=== PATIENT | female | born 1990 | race Caucasian/White ===

== ENCOUNTER → 2016-09-28 | Outpatient (CLI) | payer BC ==
[~2016-09-28] MED LIST: BCPILLS PO
[2016-09-28 16:41] LABS: BASO % 0.2 %; BASO ABS # 0.02 K/uL (0-0.2); COMPLETE YES; EOS % 0.6 %; HEMATOCRIT 38.5 % (37-47); IG% 0.2 %; LYMPH % 19.5 %; LYMPH ABS # 2.11 K/uL (1.2-3.4); MEAN CELL VOLUME 85.2 fL (80-100); MEAN CORPUSCULAR HEMOGLOBIN 29.4 pg (25-34); MEAN CORPUSCULAR HGB CONC 34.5 g/dl (32-36); MEAN PLATELET VOLUME 10.2 fL (7.4-10.4); MONO % 5.7 %; NEUT % 73.8 %; PLATELET COUNT 231 K/uL (130-400); RED BLOOD COUNT 4.52 M/uL (4.2-5.4)
== END | disposition home or self-care (01) ==
LOC: C.LAB1850 15:05
PROVIDERS: ATTEND Obstetrics & Gynecology
DX: Z34.01 Encounter for supervision of normal first pregnancy, first trimester (principal)

== ENCOUNTER → 2016-09-28 | Outpatient (CLI) | payer BC ==
[2016-09-28 18:28] LABS: URINE APPEARANCE CLEAR (CLEAR); URINE BILIRUBIN NEG (NEG); URINE COLOR YELLOW; URINE NITRITE NEG (NEG); URINE PH 5.5 (4.5-7.5); URINE SPECIFIC GRAVITY 1.015 (1.000-1.030); UROBILINOGEN NEG (NEG)
[2016-09-28 18:29] LABS: MANUAL MICROSCOPIC REQUIRED? NO; REVIEW REQ? NO
[2016-09-30 14:19] LABS: CHLAMYDIA TRACH RNA*** NOT DETECTED (NOT DETECTED); GC (NEIS GONORRHOEAE)RNA** NOT DETECTED (NOT DETECTED)
== END | disposition home or self-care (01) ==
LOC: C.LABSPEC 17:50
PROVIDERS: ATTEND Obstetrics & Gynecology
DX: Z34.01 Encounter for supervision of normal first pregnancy, first trimester (principal)

== ENCOUNTER → 2016-11-12 | Outpatient (CLI) | payer BC ==
[2016-11-12 18:33] LABS: GTGD 50 Grams
== END | disposition home or self-care (01) ==
LOC: C.LAB1850 16:45
PROVIDERS: ATTEND Obstetrics & Gynecology
DX: Z34.02 Encounter for supervision of normal first pregnancy, second trimester (principal)

== ENCOUNTER → 2016-11-21 | Outpatient (CLI) | payer BC | END | disposition home or self-care (01) | LOC: C.LABBC 07:53 | PROVIDERS: ATTEND Obstetrics & Gynecology | DX: O28.1 Abnormal biochemical finding on antenatal screening of mother (principal); Z3A.00 Weeks of gestation of pregnancy not specified ==

== ENCOUNTER → 2017-01-23 | Outpatient (CLI) | payer BC | END | disposition home or self-care (01) | LOC: C.LAB 07:21 | PROVIDERS: ATTEND Obstetrics & Gynecology | DX: O28.1 Abnormal biochemical finding on antenatal screening of mother (principal); Z3A.00 Weeks of gestation of pregnancy not specified ==

== ENCOUNTER → 2017-02-03 | Outpatient (CLI) | payer BC ==
[2017-02-03 19:17] LABS: URINE APPEARANCE CLEAR (CLEAR); URINE BILIRUBIN NEG (NEG); URINE COLOR YELLOW; URINE EPITHELIAL CELL AUTO >30 /lpf (0-5); URINE NITRITE NEG (NEG); URINE SPECIFIC GRAVITY 1.029 (1.000-1.030); UROBILINOGEN NEG (NEG)
[2017-02-03 19:19] LABS: MANUAL MICROSCOPIC REQUIRED? NO; REVIEW REQ? NO
== END | disposition home or self-care (01) ==
LOC: C.LABSPEC 17:46
PROVIDERS: ATTEND Obstetrics & Gynecology
DX: O28.1 Abnormal biochemical finding on antenatal screening of mother (principal)

== ENCOUNTER → 2017-04-01 | Outpatient (CLI) | payer BC | END | disposition home or self-care (01) | LOC: C.LABSPEC 17:55 | PROVIDERS: ATTEND Obstetrics & Gynecology | DX: Z34.03 Encounter for supervision of normal first pregnancy, third trimester (principal) ==

== ENCOUNTER 2017-04-18 20:02 | Inpatient (IN) | payer BC ==
[~2017-04-18] VITALS: Ht 165.1 cm; Wt 99.5 kg
[2017-04-18] MEDS ORDERED: LACTATED RINGER'S 1000ML 1,000 ML IV PRN (20:45)
[2017-04-18] MEDS ORDERED: LACTATED RINGER'S 1000ML 1,000 ML IV SCH (20:45)
[2017-04-18] MEDS ORDERED: PRENTAB26 PO (21:05)
[2017-04-18] MEDS ORDERED: EpHEDrine SULFATE INJ 50 MG/ML AMP ONE (21:29)
[2017-04-18] MEDS ORDERED: BUPIVACAINE 0.25% 30 ML VIAL ONE (21:29)
[2017-04-18] MEDS ORDERED: FENTANYL CITRATE INJ 50 MCG/1 ML 2 ML VIAL ONE (21:29)
[2017-04-18] MEDS ORDERED: FENTANYL 2MCG/ML ROPIV 1.25MG/ML 100ML BAG EPI ONE (21:30)
[2017-04-18 21:32] LABS: HEMATOCRIT 35.6 % (37-47); HEMOGLOBIN 12.5 g/dL (12.0-16.0); MEAN CELL VOLUME 83.4 fL (80-100); MEAN CORPUSCULAR HEMOGLOBIN 29.3 pg (25-34); MEAN PLATELET VOLUME 11.2 fL (7.4-10.4); PLATELET COUNT 182 K/uL (130-400); RED CELL DISTRIBUTION WIDTH CV 13.4 % (11.5-14.5); RED CELL DISTRIBUTION WIDTH SD 40.4 fL (36.4-46.3); WHITE BLOOD COUNT 18.74 K/uL (4.8-10.8)
[2017-04-18 21:44] LABS: MEAN CORPUSCULAR HGB CONC 35.1 g/dl (32-36)
[2017-04-18] MEDS ORDERED: OXYTOCIN 30 UNITS/500ML NSS IV ONE (22:31)
[2017-04-18] MEDS ORDERED: LACTATED RINGER'S 1000ML 500 ML IV PRN (22:35)
[2017-04-18] MEDS ORDERED: NALOXONE HCL INJ 1 MG in SODIUM CHLORIDE 0.9% 1000ML 1,000 ML IV PRN (22:35)
[2017-04-18] MEDS ORDERED: ONDANSETRON INJ 2 MG/ML 2 ML VIAL IV PRN (22:45)
[2017-04-18] MEDS ORDERED: EpHEDrine SULFATE INJ 50 MG/ML AMP IV PRN (22:45)
[2017-04-18] MEDS ORDERED: NALBUPHINE HCL INJ 10 MG/ML AMP IV PRN (22:45)
[2017-04-18] MEDS ORDERED: NALOXONE HCL INJ 0.4 MG/1 ML VIAL/CARP IV PRN (22:45)
[2017-04-18] MEDS ORDERED: FENTANYL 2MCG/ML ROPIV 1.25MG/ML 100ML BAG EPI PRN (22:45)
[2017-04-18] MEDS ORDERED: DiphenhydrAMINE HCL 50 MG/ML VIAL IV PRN (22:45)
[2017-04-19 00:57] VITALS: Ht 165.1 cm; Wt 99.5 kg
[2017-04-19] MEDS ORDERED: LACTATED RINGER'S 1000ML 1,000 ML IV SCH (05:08)
[2017-04-19] MEDS ORDERED: OXYTOCIN 30 UNITS/500ML NSS IV PRN (05:15)
[2017-04-19] MEDS ORDERED: BENZOCAINE 20% AER SPR 82.5 GM CAN EXT PRN (05:15)
[2017-04-19] MEDS ORDERED: HYDROCORTISONE ACETATE 25 MG SUPP PR PRN (05:15)
[2017-04-19] MEDS ORDERED: OXYCODONE/ACETAMINOPHEN 5-325 TAB PO PRN (05:15)
[2017-04-19] MEDS ORDERED: LANOLIN OINT EXT PRN (05:15)
[2017-04-19] MEDS ORDERED: DIPHTHERIA/TETANUS/PERTUSSIS 0.5 ML SYR/VIAL IM. ONE (05:15)
[2017-04-19] MEDS ORDERED: SUPERCREAM 0.870 % 15GM JAR EXT PRN (05:15)
[2017-04-19] MEDS ORDERED: ACETAMINOPHEN 325 MG TAB PO PRN (05:15)
--- NOTE | 2017-04-19 07:02 | DELIVERY SUMMARY ---
DATE OF OPERATION: 04/19/2017 VAGINAL DELIVERY NOTE COURSE CARE: Nara reached complete dilation and I was called to the room for delivery. I prepped and draped and washed the patient's perineum. She then pushed to deliver the head of her in an occiput anterior position with the left arm as a compound presentation and the left arm was also anterior. Once the shoulder was delivered, the remainder of the followed with no difficulty. The was placed on the maternal abdomen and the cord was doubly clamped and cut by the father of the baby. The placenta delivered spontaneously and was intact with a 3-vessel cord. There were no lacerations of the cervix, vagina, or perineum requiring repair. At the present time, both mother and are in stable condition having tolerated delivery well. I attest to the content of the Intraoperative Record and any orders documented therein. Any exceptions are noted below. MTDD
--- NOTE | 2017-04-19 07:13 | Anesthesia Procedure Note ---
Anesthesia Epidural Removal Nt Date & Time Apr 19, 2017 at 07:13 Notes Mental Status: alert / awake / arousable, participated in evaluation Nausea / Vomiting: adequately controlled Pain: adequately controlled Airway Patency, RR, SpO2: stable & adequate BP & HR: stable & adequate Hydration State: stable & adequate Neuraxial Anesthesia: was administered Anesthetic Complications: no major complications apparent, pt satisfied with anesthetic care Epidural: removed without complications, with tip intact
[2017-04-19 09:00] VITALS: BP 123/80; PULSE 80; TEMP 37.2; O2SAT 98
[2017-04-19] MEDS: DOCUSATE SODIUM 100 MG CAP PO SCH ×2 (09:13→20:12)
[2017-04-19] MEDS: PRENATAL VITAMIN TAB PO SCH (09:13)
[2017-04-19 12:36] VITALS: BP 138/84; PULSE 83; TEMP 36.9; O2SAT 98
[2017-04-19] MEDS: IBUPROFEN 600 MG TAB PO PRN ×2 (14:50→20:13)
[2017-04-19 16:30] VITALS: BP 125/77; PULSE 86; TEMP 36.9
[2017-04-19 20:10] VITALS: BP 118/78; PULSE 90; TEMP 36.6
[2017-04-19 23:50] VITALS: BP 110/70; PULSE 73; TEMP 36.5
[2017-04-20 03:05] VITALS: BP 123/78; PULSE 85; TEMP 36.6
[2017-04-20 06:37] LABS: HEMATOCRIT 33.7 % (37-47); HEMOGLOBIN 11.7 g/dL (12.0-16.0)
[2017-04-20] MEDS: PRENATAL VITAMIN TAB PO SCH (07:22)
[2017-04-20] MEDS: DOCUSATE SODIUM 100 MG CAP PO SCH (07:22)
[2017-04-20] MEDS: IBUPROFEN 600 MG TAB PO PRN (07:23)
[2017-04-20 07:41] VITALS: BP 128/82; PULSE 80; TEMP 36.7; O2SAT 98
--- NOTE | 2017-04-20 07:57 | Progress Note ---
Subjective Apr 20, 2017. Subjective conversation w/ patient, physical exam Ambulation: ambulating normally Voiding: no voiding problems Passing Gas: Yes Diet Tolerance: Regular Diet Lochia: Moderate Feeding Type: Breast Feeding Review of Systems Constitutional: No fever, No chills, No sweats, No weight loss, No weakness, No fatigue, No problem reported Breast: No see HPI, No breast lump, No change in shape, No nipple discharge, No breast pain, No problem reported Abdomen: No pain, No nausea, No vomiting, No diarrhea, No constipation, No GI bleeding, No problem reported Female : No see HPI, No dysuria, No urinary frequency, No hematuria, No incontinence, No abnormal vaginal bleeding, No vaginal discharge, No problem reported Objective Vital Signs Date Time Temp Pulse Resp B/P (MAP) Pulse Ox O2 Delivery O2 Flow Rate FiO2 04/20/17 07:51 Room Air 04/20/17 07:41 36.7 80 14 128/82 (97) 98 Room Air 04/20/17 03:05 36.6 85 20 123/78 (93) Room Air 04/19/17 23:50 36.5 73 18 110/70 (83) Room Air 04/19/17 23:50 Room Air 04/19/17 20:10 36.6 90 20 118/78 (91) Room Air 04/19/17 16:30 36.9 86 18 125/77 (93) Room Air 04/19/17 16:30 Room Air 04/19/17 12:36 36.9 83 14 138/84 (102) 98 Room Air 04/19/17 09:00 37.2 80 18 123/80 (94) 98 Room Air Physical Exam General Appearance: WELL-APPEARING, NO APPARENT DISTRESS Abdomen: non tender, soft Fundus: Firm, Non-Tender, Relation to Umbilicus (1 below U) Extremities: no calf tenderness Laboratory Results Last 24 Hours Test 04/20/17 06:11 Hemoglobin 11.7 g/dL Hematocrit 33.7 % Assessment and Plan Day#: 1 Continue Routine Care: stable course patient wishes to be discharged follow up in 6 weeks.
--- NOTE | 2017-04-20 07:58 | Discharge Instructions ---
Discharge Instructions Date of Service Apr 20, 2017. Admission Reason for Admission: Check Labor Discharge Discharge Diagnosis / Problem: nomral delivery Discharge Goals Goal(s): Routine recovery after delivery Medications Continue Dispensed Medications: supercream, dermaplast, tucks, lansinoh Activity Recommendations Activity Limitations: per Instructions/Follow-up section . Instructions / Follow-Up Instructions / Follow-Up ACTIVITY RECOMMENDATIONS: * Gradual return to full activity over the next 2-3 weeks. * No lifting - nothing heavier than baby over the next 2-3 weeks. * Do not engage in vigorous exercise, sexual activity or sports until cleared by your physician. * Do not drive or operate any motorized equipment until cleared by your physician. * You may shower/bathe daily. MEDICATIONS: For discomfort or pain, you may use Acetaminophen (Tylenol), Ibuprofen (Advil), or Naproxen (Aleve) following the package directions. For constipation you may use Colace following the package directions. BREAST CARE: If you are not breast feeding: * Wear a supportive bra 24 hours a day for one to two weeks. * Avoid stimulating your breasts and nipples as much as possible during the first few weeks after delivery. * When taking a shower, have the warm water hit your back, not breasts. * When your breasts feel full, apply ice packs. Usually three to four times a day helps ease the discomfort. * Take a mild pain medication (Tylenol / Motrin) when you are uncomfortable. If breast feeding: * Use breast milk to lubricate nipples. Lansinoh cream may be used for sore nipples. You do not need to remove cream prior to breast feeding. If using a different brand of cream, check the label for directions regarding removal of cream prior to nursing. * Wear a supportive bra. * If having problems with breasts or breast feeding, call a middleware consultant or your health care provider. EPISIOTOMY CARE: After delivery, if you have an episiotomy (stitches), the following steps will ease discomfort and aid healing. * For the first 24 hours after delivery, place ice packs next to your episiotomy to help reduce swelling. * After the first 24 hour-period, sitz baths, either portable or in the tub, are suggested. A shower with a shower arm sprayed over the episiotomy may be comforting. * Ana care should be done after each voiding and bowel movement. Squirt warm water from a plastic bottle over the perineum (region of the body between the anus and urinary opening) and pat dry. * Use Dermoplast to ease discomfort. Shake container. Clarinda directly over the episiotomy. Place a Tucks on a clean sanitary pad next to your episiotomy. SPECIAL CARE INSTRUCTIONS: When you are discharged from the hospital, it is important for you to follow the instructions listed below: * During the first week at home, you should be able to care for yourself and your baby. In addition, the usual light household activities are encouraged. * Limit your activities to the way you feel. Do not try to clean the house or move furniture. Be sensible. * If you actively engage in sports and have done so up until the time of your delivery, you may resume these activities as soon as you feel able. This may take up to one month or even longer. Use good judgment. * Continue to take your vitamins for at least six weeks after the of your baby. * Your diet need not be limited unless you were on a special diet before your delivery. Breast-feeding mothers need around 2500 calories per day and at least 64-80 ounces of fluid per day (8 to 10 glasses). * You should eat foods from the four major food groups. Crash diets or fad diets are to be avoided. Eating lean meats, fresh fruits and vegetables, low-fat dairy products, high fiber foods and a regular exercise program, will help you get back to your pre- weight without putting your health at risk. * Constipation is sometimes a problem after delivery. Take a mild laxative as needed. If breast feeding, Milk of Magnesia is acceptable to use. You may use a suppository or Fleets enema if no episiotomy. * A daily shower or tub bath is suggested. Be sure to thoroughly and gently dry the perineum. * A bloody vaginal discharge will usually continue until around four weeks post . A small amount of bleeding may continue for as long as six weeks. Vaginal discharge changes from the bright red bleeding after delivery to pink then brownish and finally yellowish-pink before becoming white and disappearing. * Bleeding may increase with activity. Your first period may come in 4-8 weeks. If you are breast feeding, your period may be delayed even longer. * [place] (sex) can begin whenever both you and your partner feel comfortable and do not have any form of genital infection. It is recommended that you wait at least six weeks for internal and external healing to occur. If you have questions, please talk to your health care practitioner. A condom should be used to prevent infection and . * Foreplay, gentle intercourse and lubrication is very important the first several times to prevent pain. A water-based lubricant such as K-Y jelly or Astroglide may be used. * If you have RH negative blood and your baby is RH positive, you will receive RHOGAM by injection prior to discharge. The nurse will give you a card to keep with you that has the date and place that you received RHOGAM after delivery. * During your care, you had a Rubella screen done to check for the presence of rubella antibodies in your blood. If your test was negative, you will receive a Rubella vaccine prior to discharge. This vaccine may cause a fever, soreness at the injection site and flu-like symptoms. If these symptoms persist, notify your health care practitioner. is not advised for one month after a Rubella vaccine. * Verbalizes understanding of car seat law as reviewed with patient nursing. * Car Seat hand-out given and reviewed with patient by nursing. * Shaken baby information reviewed with patient by nursing. Call you doctor if: * Heavy bleeding (saturating several pads an hour) or passing clots the size of your fist. * A fever >101 degrees F (38.3 degrees C) on two occasions four hours apart and /or chills. * Unusual pain in the pelvic or vaginal areas. * "Baby Blues" lasting longer than two weeks. If you have any questions or concerns, call your health care practitioner at . FOLLOW UP VISIT: * Please call the office at to schedule a 6 week examination. It is important you keep this appointment. It is important for you to make arrangements for either yearly or twice yearly check-ups thereafter. Current Hospital Diet Patient's current hospital diet: Regular OB Diet Discharge Diet Recommended Diet: Regular OB Diet Pending Studies Studies pending at discharge: no Medical Emergencies . Who to Call and When: Medical Emergencies: If at any time you feel your situation is an emergency, please call [phone] immediately. . Non-Emergent Contact Non-Emergency issues call your: [employer] Shift Lead . . "Provider Documentation" section prepared by Olga Dias. . VTE Core Measure Inpt VTE Proph given/why not?: Treatment not indicated
== END 2017-04-20 14:30 | disposition home or self-care (01) | DRG 775 ==
LOC: C.LD 20:02 → C.OPB 20:02 → C.LD 20:46 → C.OBG 04-19 08:36
PROVIDERS: ADMIT Obstetrics & Gynecology; ATTEND Obstetrics & Gynecology
PROC: 10E0XZZ Delivery of Products of Conception, External Approach (ICD-10-PCS; principal; 2017-04-19)
DX: O32.6XX0 Maternal care for compound presentation, not applicable or unspecified (principal); Z3A.39 39 weeks gestation of pregnancy; Z37.0 Single live birth

== ENCOUNTER → 2017-06-01 | Outpatient (CLI) | payer BC ==
[~2017-06-01] MED LIST changes: -BCPILLS PO; +PRENTAB26 PO
== END | disposition home or self-care (01) ==
LOC: C.PAPS 16:28
PROVIDERS: ATTEND Obstetrics & Gynecology
DX: Z39.2 Encounter for routine postpartum follow-up (principal)

== ENCOUNTER 2019-06-16 22:59 | Inpatient (IN) ==
[2019-06-16] MEDS ORDERED: OXYTOCIN 30 UNITS/500 ML BAG IV PRN ×2 (23:13→23:53)
--- NOTE | 2019-06-16 23:28 | History & Physical Report ---
Date of Service June 16, 2019 Assessment & Plan (1) Normal labor: IUP at term with SPROM in early labor will want epidural analgesia pitocin if needed if no regular ctns in 2 hours anticipate vaginal History of Present Illness Primary Care Provider: NO PCP Patient is a 29 yo white female EDC06/18/19 who presents at 39+ weeks with SPROM for clear fluid at 2130. only cramping so far- no regular ctns yet. GBS-negative blood type A-positive. 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: No Beliefs That Will Affect Care: None marital status: marital status details: Kranthi Ross (32) [phone] Current Living Situation: Family Current Living Situation Comment: Lives with , 2 year old daughter, and a cat current occupational status: employed 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 @ [employer] Smoking Status: Never smoker Hx Alcohol Use: No Hx Substance Use: No Review of Systems All systems reviewed & are unremarkable except as noted in HPI & below Physical Exam Constitutional: WD/WN, vitals as above Respiratory: normal respiratory effort, lungs clear to auscultation Cardiovascular: RRR, no murmur, no edema Gastrointestinal (Abdomen): normal bowel sounds, soft, nontender, no he patosplenomegaly Psychiatric: A+Ox3, euthymic affect Genitourinary: OB Exam Abdomen: + vertex, + estimated weight (8-9 pounds) and + irregular contractions Manual OB Exam: + cervical dilation 3 cm, + cervical effacement 80%, + station -2 and + amniotic fluid clear OB Exam Monitor Tracing: + external FHT monitor used, + external uterine monitor used, + category I and + normal FHT variability grossly ruptured for clear fluid Results & Data Vital Signs (Past 12 Hours) Vital Signs Pulse BP 06/16/19 23:15 91 H 129/78 06/16/19 23:09 99 H 133/83 Coding Level of Care Code None Diagnoses Normal labor O80; Z37.9
[2019-06-16 23:33] LABS: Hematocrit (blood only) 35.3 % (37-47); Hemoglobin 11.9 g/dL (12.0-16.0); Mean Corpuscular Hemoglobin 29.5 pg (25-34); Mean Corpuscular Volume 87.4 fL (80-100); Mean Platelet Volume 11.2 fL (7.4-10.4); Platelet Count 159 K/uL (130-400); RDW Coefficient of Variation 13.4 % (11.5-14.5); RDW Standard Deviation 42.5 fL (36.4-46.3); Red Blood Count 4.04 M/uL (4.2-5.4)
[2019-06-16 23:35] LABS: Mean Corpuscular Hgb Conc 33.7 g/dL (32-36)
[2019-06-17] MEDS: LACTATED RINGER'S 1,000 ML IV PRN ×2 (00:40→01:36)
[2019-06-17] MEDS ORDERED: ePHEDrine sulfate 50 MG/ML AMP ONE (00:46)
[2019-06-17] MEDS ORDERED: BUPIVACAINE 0.25% 30 ML VIAL ONE (00:47)
[2019-06-17] MEDS ORDERED: fentaNYL citrate 100 MCG/2 ML VIAL ONE (00:48)
[2019-06-17] MEDS ORDERED: fentaNYL 2MCG/ML ROPIV 1.25MG/ML 100 ML BAG EPI ONE (00:48)
--- NOTE | 2019-06-17 01:44 | Anesthesiology Consultation ---
Date of Service June 17, 2019 Assessment & Plan Chart Review Chart Review: Acceptable Risk for Labor Epidural Consults Requested none Proposed Anesthesia Anesthesia Type: Labor Epidural Risk / Benefits Reviewed With: PT / POA / Parent / Guardian, Accepts Plan and Informed Consent Obtained History Height/Weight Height: 5 ft 5 in Weight: 98.883 kg Allergies Allergy/AdvReac Type Severity Reaction Status Date / Time No Known Allergies Allergy Verified 06/14/19 12:00 Medications Home Medications Medication Instructions Recorded Confirmed Last Taken lactobacillus combination no.8 3,000 mmu cells PO DAILY 06/17/19 06/17/19 06/16/19 07:00 vit-iron fum-folic ac 1 tab PO DAILY 06/17/19 06/17/19 06/16/19 07:00 [ Vitamin] Active Medications Generic Name Dose Route Start Last Admin Trade Name Freq PRN Reason Stop Dose Admin Lactated Ringer's 1,000 mls @ 125 mls/hr 06/16/19 23:13 06/17/19 01:36 Lr IV 06/18/19 23:12 125 mls/hr .Q8H PRN Administration L&D Protocol Protocol Oxytocin 30 units in 500 mls @ 1 mls/hr 06/16/19 23:53 06/17/19 01:12 Pitocin IV 06/18/19 23:52 0.06 units/hr .Q24H PRN 1 mls/hr Labor Induction/Augmentation Administration Protocol 0.06 UNITS/HR NPO Date Last Intake of Fluids: 06/17/19 Time Last Intake of Fluids: 00:00 Date Last Intake of Solids: 06/16/19 Time Last Intake of Solids: 19:00 Past Medical History Medical History Varicella Exercise / Class Metabolic Activity II 4-5 Yardwork/Stairs/Walk up hill Past Surgical History Surgical History S/P wisdom tooth extraction Past Anesthesia History No Hx of Anesthesia Complications History of PONV No Hx of PONV and No Hx of Motion Sickness Social History Smoking Status: Never smoker Do You Dip or Chew Tobacco: No Hx Alcohol Use: No Hx Substance Use: No substance use type: does not use Physical Exam Vital Signs Last Vital Signs Temp 36.6 C 06/17/19 01:28 Pulse 92 H 06/17/19 01:39 Resp 20 06/17/19 01:28 BP 187/95 H 06/17/19 01:36 Pulse Ox 100 06/17/19 01:39 ENMT Mouth: no TMJ abnormality Thyromental Distance: > or= 3.5 Finger Breadths Mallampati Class: II Neck normal visual inspection and trachea midline; neck extension not limited Respiratory normal respiratory effort Auscultation: lungs clear to auscultation bilaterally Cardiovascular Rate/Rhythm: regular rate and regular rhythm Heart Sounds: no murmur Musculoskeletal Spine: normal cervical ROM Extremities: full ROM of extremities Neurologic moves all extremities +scoliosis Psychiatric Orientation: alert and oriented x 3 Testing Laboratory Results 06/16/19 23:23
[2019-06-17] MEDS ORDERED: METOCLOPRAMIDE HCL 20 MG in SODIUM CHLORIDE 0.9% 50 ML IV PRN (02:34)
[2019-06-17] MEDS ORDERED: NALOXONE HCL 0.4 MG/1 ML VIAL/CARP IV PRN (02:34)
[2019-06-17] MEDS ORDERED: NALBUPHINE HCL INJ 10 MG/ML AMP IV PRN (02:34)
[2019-06-17] MEDS ORDERED: NALOXONE HCL 1 MG in SODIUM CHLORIDE 0.9% 1000ML 1,000 ML IV PRN (02:34)
[2019-06-17] MEDS ORDERED: PROMETHAZINE HCL 25 MG in SODIUM CHLORIDE 0.9% 50 ML IV PRN (02:34)
[2019-06-17] MEDS ORDERED: ePHEDrine sulfate 50 MG/ML AMP IV PRN (02:34)
[2019-06-17] MEDS ORDERED: ONDANSETRON INJ 2 MG/ML 2 ML VIAL IV PRN (02:34)
[2019-06-17] MEDS ORDERED: DiphenhydrAMINE HCL 50 MG/ML VIAL IV PRN (02:34)
[2019-06-17] MEDS ORDERED: fentaNYL 2MCG/ML ROPIV 1.25MG/ML 100 ML BAG EPI PRN (02:34)
[2019-06-17] MEDS ORDERED: OXYTOCIN 30 UNITS/500 ML BAG IV PRN (02:37)
[2019-06-17] MEDS ORDERED: SUPERCREAM 0.870% 15 GM JAR EXT PRN (02:37)
[2019-06-17] MEDS ORDERED: HYDROCORTISONE ACETATE 25 MG SUPP PR PRN (02:37)
[2019-06-17] MEDS ORDERED: bisacodyL 10 MG SUPP PR PRN (02:37)
[2019-06-17] MEDS ORDERED: BENZOCAINE 20% AER SPR 82.5 GM CAN EXT PRN (02:37)
[2019-06-17] MEDS ORDERED: IBUPROFEN 600 MG TAB PO PRN (02:37)
[2019-06-17] MEDS ORDERED: ACETAMINOPHEN 325 MG TAB PO PRN (02:37)
[2019-06-17] MEDS ORDERED: OXYCODONE/ACETAMINOPHEN 5mg/325mg TAB PO PRN (02:37)
[2019-06-17] MEDS ORDERED: DIPHTHERIA/TETANUS/PERTUSSIS 0.5 ML SYR/VIAL IM ONE (02:37)
--- NOTE | 2019-06-17 02:41 | Anesthesia Procedure Note ---
Date of Service June 17, 2019 Anesthesia Post Epidural Note Vital Signs Vital Signs: Temp Pulse Resp BP Pulse Ox 36.6 C 100 H 20 123/74 75 L 06/17/19 01:28 06/17/19 02:37 06/17/19 01:28 06/17/19 02:37 06/17/19 02:19 Notes Mental Status: alert / awake / arousable and participated in evaluation Nausea / Vomiting: adequately controlled Pain: adequately controlled Airway Patency, RR, SpO2: stable & adequate BP & HR: stable & adequate Hydration State: stable & adequate Neuraxial Anesthesia: was administered and sensory block is resolving Anesthetic Complications: no major complications apparent and Pt Satisfied with anesthetic care Epidural: Removed without complications and With tip intact
--- NOTE | 2019-06-17 04:28 | Delivery Summary ---
DATE OF OPERATION: 06/17/2019 The patient is a 29-year-old 2, para 1-0-0-1 white female, EDC of 06/18/2019 who presented with ruptured membranes. She then began to contract, but needed Pitocin augmentation. She went rapidly to full dilation with effective epidural analgesia. She pushed once to 1 contraction for delivery of a viable male . Rest of the infant delivered easily and was placed on the mother's abdomen for further attention and drying. There was spontaneous crying and the was moving all 4 limbs. After approximately a minute, the cord was clamped and cut. After cord blood was obtained, the placenta was expressed intact with a 3-vessel cord. There were very superficial bilateral labial abrasions, which were not bleeding and therefore not repaired. Estimated blood loss was 150 mL. Mother and infant were doing well after delivery. I attest to the content of the Intraoperative Record and any orders documented therein. Any exception s are noted below.
[2019-06-17] MEDS: DOCUSATE SODIUM 100 MG CAP PO SCH ×2 (07:45→20:17)
[2019-06-17] MEDS: PRENATAL VITAMIN 1 TAB PO SCH (07:45)
[2019-06-17 08:26] VITALS: O2SAT 99
[2019-06-18 06:34] LABS: Hematocrit (blood only) 36.2 % (37-47); Hemoglobin 12.1 g/dL (12.0-16.0); Mean Corpuscular Hemoglobin 29.9 pg (25-34); Mean Corpuscular Hgb Conc 33.4 g/dL (32-36); Mean Corpuscular Volume 89.4 fL (80-100); Mean Platelet Volume 11.6 fL (7.4-10.4); Platelet Count 160 K/uL (130-400); RDW Coefficient of Variation 13.6 % (11.5-14.5); RDW Standard Deviation 44.5 fL (36.4-46.3); Red Blood Count 4.05 M/uL (4.2-5.4); White Blood Count 12.23 K/uL (4.8-10.8)
--- NOTE | 2019-06-18 07:05 | Obstetrical Progress Note ---
Date of Service June 18, 2019 Assessment & Plan (1) state: Recovering well PPD#1, wants to go home today, instructions reviewed. Subjective Ambulation: ambulating normally Voiding: no voiding problems Passing Gas:: Yes Diet Tolerance:: regular diet Lochia:: Small Feeding Type:: breast feeding Physical Exam Constitutional WD/WN, vitals as above Eyes PERRL, conjunctivae normal, anicteric sclerae Neck normal visual inspection Respiratory normal respiratory effort and able to speak in complete sentences; no respiratory distress and no labored breathing Cardiovascular Rate/Rhythm: regular rate and regular rhythm Extremities: no edema Chest (Breasts) Chest: normal inspection of chest Gastrointestinal (Abdomen) Inspection/Auscultation: abdomen normal to inspection Soft, postgravid Psychiatric A+Ox3, euthymic affect Genitourinary OB Exam Abdomen: + fundal height Fundus: + firm and + relation to umbilicus (fundus just below umbilicus); not tender Results & Data Vital Signs (Past 12 Hours) Vital Signs Temp Pulse Resp BP 06/17/19 23:50 98.1 F 91 H 18 126/77 06/17/19 20:15 98.1 F 88 18 120/77
[2019-06-18 07:30] VITALS: BP 116/85; PULSE 87; TEMP 98.4
[2019-06-18] MEDS: PRENATAL VITAMIN 1 TAB PO SCH (08:24)
[2019-06-18] MEDS: DOCUSATE SODIUM 100 MG CAP PO SCH (08:24)
[2019-06-18] MEDS ORDERED: bisacodyL 5 MG TABEC PO SCH (20:00)
== END 2019-06-18 11:35 | disposition home or self-care (01) | DRG 807 ==
LOC: OPB 22:59 → 4S1 23:00 → 4S2 06-17 04:52